=== PATIENT | female | born 1990 | race Caucasian/White ===

== ENCOUNTER → 2017-12-26 | Outpatient (CLI) | payer BC, OTHER ==
[~2017-12-26] MED LIST: IOHEXOL 300 MG/ML 50 ML VIAL. INT UTERIN ONE
[2017-12-26 11:48] LABS: U PREG PATIENT NEGATIVE (NEG)
--- NOTE | 2017-12-26 15:27 | RAD ---
Hysterosalpingogram 12/26/2017 CLINICAL HISTORY: Infertility. TECHNIQUE: After the risks and benefits of the procedure were explained to the patient, written informed consent was obtained. The patient was placed prone on the fluoroscopy table and a speculum was placed into the vagina. The external cervical os was identified and prepped and using a Betadine solution. A HSG catheter was advanced through the cervical os into the endometrial canal of the uterus and the balloon was inflated. 12 cc of Omnipaque 180 was injected through the catheter distending the endometrial canal and the fallopian tubes under fluoroscopic guidance. Following this the balloon was deflated and the catheter was removed as was the speculum. The patient tolerated the procedure well and there were no immediate complications. The total fluoroscopic time for this study was .8 minutes. 7 digital spot radiographs were obtained. FINDINGS: The endometrial canal is within normal limits in size and configuration. No filling defect is seen. Both fallopian tubes are well-visualized. Free spillage of contrast into the peritoneal cavity from both fallopian tubes is seen. IMPRESSION: Negative study. Electronically signed by: Manish Mendez MD (12/26/2017 3:24 PM) [id number]
== END | disposition home or self-care (01) ==
LOC: RAD 10:28
PROVIDERS: ATTEND Family Medicine
DX: N97.8 Female infertility of other origin (principal); Z88.8 Allergy status to other drugs, medicaments and biological substances
CPT/HCPCS: 58340; 74740; 81025